=== PATIENT | female | born 1980 | race Hispanic/Latino ===

== ENCOUNTER 2020-06-02 11:38 | Inpatient (IN) | payer MEDICARE ==
[~2020-06-02] VITALS: Ht 157.5 cm; Wt 40.9 kg
[2020-06-02] MEDS ORDERED: 0.9% NACL 500ML IV.SOLN 500 ML IV ONE ×2 (11:53→12:33)
[2020-06-02 12:34] LABS: BASOPHILS % (AUTO) 1.7 % (0.0-5.0); EOSINOPHILS % (AUTO) 3.8 % (0.0-8.0); HEMATOCRIT 33.6 % (36-48); LYMPHOCYTES % (AUTO) 49.6 % (21.0-51.0); MEAN CORPUSCULAR HEMOGLOBIN 31.3 pg (27.0-33.0); MEAN CORPUSCULAR HGB CONC 32.7 g/dL (32.0-36.0); MEAN CORPUSCULAR VOLUME 95.5 fL (79-99); MONOCYTES % (AUTO) 9.7 % (3.0-13.0); NEUTROPHILS % (AUTO) 34.8 % (40.0-77.0); PLATELET COUNT (AUTO) 224 K/uL (130-400); RED BLOOD CELL COUNT(AUTO) 3.52 MIL/uL (4.00-5.50); RED CELL DISTRIBUTION WIDTH 13.3 % (11.0-15.5); WHITE BLOOD COUNT (AUTO) 2.4 K/uL (4.8-10.8)
[2020-06-02 12:46] LABS: INR 1.01 (0.85-1.15)
[2020-06-02 12:48] LABS: PARTIAL THROMBOPLASTIN TIME 22.3 SEC (26.3-35.5)
[2020-06-02 12:50] LABS: ALBUMIN 2.8 g/dL (3.5-5.0); BILIRUBIN,TOTAL 0.1 mg/dL (0.2-1.0); CREATININE 0.5 mg/dL (0.5-1.5); POTASSIUM 4.2 mmol/L (3.5-5.1); TOTAL PROTEIN, SERUM 6.7 g/dL (6.0-8.3)
[2020-06-02 12:58] LABS: B-TYPE NATRIURETIC PEPTIDE < 5 pg/mL (0-100)
[2020-06-02] MEDS ORDERED: DEXTROSE 50%-WATER 50 ML DISP.SYRIN IV ONE (13:03)
[2020-06-02 13:13] LABS: EOSINOPHILS % (MANUAL) 2 % (1-6); LYMPHOCYTES % (MANUAL) 44 % (22-44); MAN.DIFF COMMENT-IMPRESSION MANUAL DIFFERENTIAL; MONOCYTES % (MANUAL) 5 % (2-9); PLATELET MORPHOLOGY COMMENT ADEQUATE; SEGMENTED NEUTROPHILS % 49 % (40-70)
[2020-06-02] MEDS ORDERED: ONDANSETRON 4MG INJ IV PRN (15:00)
[2020-06-02] MEDS ORDERED: ALBUMIN (HUMAN) 25% 100 ML IV PRN (16:00)
[2020-06-02 18:28] LABS: APPEARANCE,URINE Cloudy (CLEAR); BILIRUBIN,URINE Negative (NEGATIVE); COLOR,URINE Dark Yellow (YELLOW); GLUCOSE, URINE (UA) 500 mg/dL (NEGATIVE); KETONES,URINE Negative (NEGATIVE); LEUKOCYTE ESTERASE ,URINE Trace (NEGATIVE); NITRATE,URINE Negative (NEGATIVE); OCCULT BLOOD,URINE Negative (NEGATIVE); PH,URINE 8.5 (5.0-8.0); PROTEIN,URINE Negative (NEGATIVE)
[2020-06-02 18:38] LABS: BACTERIA,URINE Few /HPF (None Seen); RBC,URINE 0-1 /HPF (0-1)
[2020-06-02 18:39] LABS: MUCUS,URINE Moderate LPF (None Seen); SQUAMOUS EPITHELIAL CELL,UR Few /HPF (0-2)
[2020-06-02 18:40] LABS: AMORPHOUS SEDIMENT,UR Few /LPF (None Seen); TRIPLE PHOSPHATE CRYSTAL,UR Few /LPF (None Seen)
[2020-06-02] MEDS ORDERED: LACT10SO9 PO (19:05)
[2020-06-02] MEDS ORDERED: CLON1TAB12 PEG (19:05)
[2020-06-02] MEDS ORDERED: FLUT15.845 NS (19:05)
[2020-06-02] MEDS ORDERED: MULT-1238 PEG (19:05)
[2020-06-02] MEDS ORDERED: MIRT45TA79 PEG (19:05)
[2020-06-02] MEDS ORDERED: SODI104S3 NS (19:05)
[2020-06-02] MEDS ORDERED: LEVO112C4 PEG (19:05)
[2020-06-02] MEDS ORDERED: CARB200T6 PEG (19:05)
[2020-06-02] MEDS ORDERED: BENZ2TAB10 PEG (19:05)
[2020-06-02] MEDS ORDERED: DOCU50LI18 PO (19:05)
[2020-06-02] MEDS ORDERED: LORA10TA7 PEG (19:05)
[2020-06-02] MEDS ORDERED: FOLI1 PEG (19:05)
[2020-06-02] MEDS ORDERED: OLAN10TA73 PEG (19:05)
[2020-06-02] MEDS ORDERED: PANT40TA54 PEG (19:05)
[2020-06-02] MEDS: MIDODRINE HCL 5 MG TABLET PO SCH (21:00)
[2020-06-02] MEDS: FAMOTIDINE 20MG VIAL IV SCH (21:00)
[2020-06-02] MEDS ORDERED: ALBUMIN (HUMAN) 25% 50 ML IV ONE (21:11)
[2020-06-03] MEDS ORDERED: ALBUMIN (HUMAN) 25% 50 ML IV ONE (01:59)
[2020-06-03 05:05] VITALS: BP 84/55
[2020-06-03] MEDS ORDERED: DEXTROSE 50%-WATER 50 ML DISP.SYRIN IV ONE (06:05)
[2020-06-03 06:07] LABS: HEMATOCRIT 30.9 % (36-48); MEAN CORPUSCULAR HEMOGLOBIN 30.5 pg (27.0-33.0); MEAN CORPUSCULAR HGB CONC 31.7 g/dL (32.0-36.0); MEAN CORPUSCULAR VOLUME 96.3 fL (79-99); RED BLOOD CELL COUNT(AUTO) 3.21 MIL/uL (4.00-5.50); RED CELL DISTRIBUTION WIDTH 13.2 % (11.0-15.5); WHITE BLOOD COUNT (AUTO) 3.5 K/uL (4.8-10.8)
[2020-06-03 06:10] LABS: HEMOGLOBIN A1C 5.6 % (4.0-6.0)
[2020-06-03] MEDS ORDERED: GLUCAGON 1MG KIT 1 MG ML IM PRN (06:15)
[2020-06-03] MEDS ORDERED: DEXTROSE 50%-WATER 50 ML DISP.SYRIN IV PRN (06:15)
[2020-06-03 06:35] LABS: ALBUMIN 3.1 g/dL (3.5-5.0); BILIRUBIN,TOTAL 0.2 mg/dL (0.2-1.0); CREATININE 0.4 mg/dL (0.5-1.5); POTASSIUM 3.9 mmol/L (3.5-5.1); THYROID STIMULATING HORMONE 0.21 uIU/mL (0.36-3.74); TOTAL PROTEIN, SERUM 6.3 g/dL (6.0-8.3)
[2020-06-03 08:00] VITALS: BP 90/61
[2020-06-03] MEDS: MIDODRINE HCL 5 MG TABLET PO SCH ×2 (09:00→20:23)
[2020-06-03] MEDS: FAMOTIDINE 20MG VIAL IV SCH ×2 (09:00→20:23)
[2020-06-03 11:43] VITALS: BP 88/57
[2020-06-03] MEDS ORDERED: 0.9% NACL 500ML IV.SOLN 500 ML IV SCH (14:30)
[2020-06-03 16:00] VITALS: BP 90/60
[2020-06-03 20:00] VITALS: BP 96/69
[2020-06-04] VITALS: BP 93/57
[2020-06-04 04:00] VITALS: BP 90/58
[2020-06-04 05:00] LABS: BASOPHILS % (AUTO) 0.5 % (0.0-5.0); EOSINOPHILS % (AUTO) 1.2 % (0.0-8.0); HEMATOCRIT 35.9 % (36-48); LYMPHOCYTES % (AUTO) 24.1 % (21.0-51.0); MEAN CORPUSCULAR HEMOGLOBIN 30.9 pg (27.0-33.0); MEAN CORPUSCULAR VOLUME 96.5 fL (79-99); MONOCYTES % (AUTO) 3.2 % (3.0-13.0); NEUTROPHILS % (AUTO) 70.6 % (40.0-77.0); PLATELET COUNT (AUTO) 281 K/uL (130-400); RED BLOOD CELL COUNT(AUTO) 3.72 MIL/uL (4.00-5.50); RED CELL DISTRIBUTION WIDTH 13.3 % (11.0-15.5); WHITE BLOOD COUNT (AUTO) 7.7 K/uL (4.8-10.8)
[2020-06-04 05:14] LABS: CREATININE 0.5 mg/dL (0.5-1.5)
[2020-06-04 07:30] VITALS: BP 88/58
[2020-06-04] MEDS: FAMOTIDINE 20MG VIAL IV SCH (09:20)
[2020-06-04] MEDS: MIDODRINE HCL 5 MG TABLET PO SCH (09:20)
[2020-06-04 11:00] VITALS: BP 86/57
[2020-06-04 16:00] VITALS: BP 99/73
[2020-06-04] MEDS ORDERED: NACL NASAL SPRAY 120 SPRAY/BOTTLE NS PRN (16:00)
[2020-06-04] MEDS ORDERED: MIDO5TAB4 PO (16:28)
[2020-06-04 19:59] VITALS: BP 121/75
[2020-06-04] MEDS ORDERED: FLUTICASONE PROPIONATE 50MCG/SPRAY 16 GM BOTTLE NS SCH (21:00)
[2020-06-04] MEDS ORDERED: LACTULOSE 20 GM/30 ML UDCUP PO SCH (21:00)
[2020-06-04] MEDS ORDERED: CARBAMAZEPINE 200 MG TABLET PO SCH (21:00)
[2020-06-04] MEDS ORDERED: OLANZAPINE 5 MG TAB PO SCH (21:00)
[2020-06-04] MEDS ORDERED: MIDODRINE HCL 5 MG TABLET PO SCH (21:00)
[2020-06-04] MEDS ORDERED: MIRTAZAPINE 15 MG TABLET PO SCH (21:00)
[2020-06-04] MEDS ORDERED: CLONAZEPAM 1MG TAB PO SCH (21:00)
[2020-06-05] MEDS ORDERED: LEVOTHYROXINE 112 MCG TABLET PO SCH (07:30)
[2020-06-05] MEDS ORDERED: MULTIVITAMIN WITH MINERALS TABLET PO SCH (09:00)
[2020-06-05] MEDS ORDERED: FOLIC ACID 1 MG TABLET PO SCH (09:00)
[2020-06-05] MEDS ORDERED: BENZTROPINE 0.5MG TAB PO SCH (09:00)
[2020-06-05] MEDS ORDERED: DOCUSATE SODIUM 100 MG CAP PO SCH (09:00)
[2020-06-05] MEDS ORDERED: PANTOPRAZOLE 40 MG TAB DR PO SCH (09:00)
[2020-06-05] MEDS ORDERED: LORATADINE 10 MG TABLET PO SCH (09:00)
== END 2020-06-04 21:00 | disposition home or self-care (01) | DRG 315 ==
LOC: EDH 11:38 → EDHIP 14:54 → 3DH 06-03 04:32
PROVIDERS: ADMIT Family Medicine; ATTEND Family Medicine
DX: I95.9 Hypotension, unspecified (principal); E44.1 Mild protein-calorie malnutrition; E16.2 Hypoglycemia, unspecified; R53.81 Other malaise; R13.10 Dysphagia, unspecified; Z93.1 Gastrostomy status; E03.9 Hypothyroidism, unspecified; G80.9 Cerebral palsy, unspecified; Z20.822 Contact with and (suspected) exposure to COVID-19
CPT/HCPCS: 36415; 71045; 80048; 80053; 81001; 82270; 82550; 82947; 82948; 83036; 83605; 83690; 83880; 84145; 84443; 84484; 84702; 85025; 85027; 85610; 85730; 86900; 86901; 87040; 87426; 87804; 87880; 93005; 99291; G0378; J1610; J3490; J7040; J7070; P9047; U0003

== ENCOUNTER 2020-06-11 21:15 | Inpatient (IN) | payer MEDICARE ==
[~2020-06-11] VITALS: Ht 157.5 cm; Wt 40.8 kg
[~2020-06-11 21:15] MED LIST: BENZ2TAB10 PEG; CARB200T6 PEG; CLON1TAB12 PEG; DOCU50LI18 PO; FLUT15.845 NS; FOLI1 PEG; LACT10SO9 PO; LEVO112C4 PEG; LORA10TA7 PEG; MIDO5TAB4 PO; MIRT45TA79 PEG; MULT-1238 PEG; OLAN10TA73 PEG; PANT40TA54 PEG; SODI104S3 NS
[2020-06-11 21:44] LABS: BASOPHILS % (AUTO) 1.1 % (0.0-5.0); EOSINOPHILS % (AUTO) 2.2 % (0.0-8.0); HEMATOCRIT 33.9 % (36-48); MEAN CORPUSCULAR HEMOGLOBIN 31.4 pg (27.0-33.0); MEAN CORPUSCULAR HGB CONC 32.7 g/dL (32.0-36.0); MONOCYTES % (AUTO) 13.6 % (3.0-13.0); NEUTROPHILS % (AUTO) 51.8 % (40.0-77.0); PLATELET COUNT (AUTO) 262 K/uL (130-400); RED BLOOD CELL COUNT(AUTO) 3.53 MIL/uL (4.00-5.50); RED CELL DISTRIBUTION WIDTH 13.6 % (11.0-15.5); WHITE BLOOD COUNT (AUTO) 3.7 K/uL (4.8-10.8)
[2020-06-11 21:52] LABS: APPEARANCE,URINE Turbid (CLEAR); BILIRUBIN,URINE Negative (NEGATIVE); COLOR,URINE Dark Yellow (YELLOW); GLUCOSE, URINE (UA) 500 mg/dL (NEGATIVE); KETONES,URINE Trace mg/dL (NEGATIVE); LEUKOCYTE ESTERASE ,URINE Large (NEGATIVE); NITRATE,URINE Negative (NEGATIVE); OCCULT BLOOD,URINE Nonhemolyzed Trace (NEGATIVE); PH,URINE 6.5 (5.0-8.0); PROTEIN,URINE POS 1+ mg/dL (NEGATIVE)
[2020-06-11 21:59] LABS: HCG,QUAL RESULT NEGATIVE (NEGATIVE)
[2020-06-11 22:00] LABS: CREATININE 0.4 mg/dL (0.5-1.5); POTASSIUM 3.6 mmol/L (3.5-5.1)
[2020-06-11 22:02] LABS: BACTERIA,URINE Moderate /HPF (None Seen); RBC,URINE 0-1 /HPF (0-1); SQUAMOUS EPITHELIAL CELL,UR None Seen /HPF (0-2); WBC,URINE Full Field /HPF (0-1)
[2020-06-11] MEDS ORDERED: 0.9%NACL 1000ML 1,000 ML IV ONE (22:06)
[2020-06-11 22:07] LABS: AMPHET/METH SCREEN,URINE NEGATIVE (NEGATIVE); BARBITURATE SCREEN, URINE NEGATIVE (NEGATIVE); BENZODIAZEPINES SCREEN,URINE NEGATIVE (NEGATIVE); CANNABINOID SCREEN,URINE NEGATIVE (NEGATIVE); COCAINE SCREEN,URINE NEGATIVE (NEGATIVE); OPIATE SCREEN,URINE NEGATIVE (NEGATIVE); PHENCYCLIDINE SCREEN,URINE NEGATIVE (NEGATIVE)
[2020-06-11 22:10] LABS: ALBUMIN 3.1 g/dL (3.5-5.0); BILIRUBIN,TOTAL 0.1 mg/dL (0.2-1.0); TOTAL PROTEIN, SERUM 7.1 g/dL (6.0-8.3)
[2020-06-12] MEDS ORDERED: ZOSYN 3.375GM+NS 50ML 50 ML IV ONE ×2 (00:05→05:54)
[2020-06-12] MEDS ORDERED: ACETAMINOPHEN 325 MG TAB PEG PRN ×2 (00:45)
[2020-06-12] MEDS: 0.9%NACL 1000ML 1,000 ML IV SCH ×2 (00:45→10:45)
[2020-06-12] MEDS ORDERED: ONDANSETRON 4MG INJ IV PRN (00:45)
[2020-06-12] MEDS ORDERED: 0.9%NACL 1000ML 1,000 ML IV SCH (00:45)
[2020-06-12 01:22] LABS: RETICULOCYTE % (AUTO) 1.51 % (0.42-2.23)
[2020-06-12 01:47] LABS: MAGNESIUM 2.4 mg/dL (1.80-2.40); PHOSPHORUS 3.8 mg/dL (2.5-4.9); THYROID STIMULATING HORMONE 0.17 uIU/mL (0.36-3.74)
[2020-06-12 02:41] LABS: % IRON SATURATION 34.2 % (22-44)
[2020-06-12 06:28] LABS: BASOPHILS % (AUTO) 1.3 % (0.0-5.0); EOSINOPHILS % (AUTO) 3.5 % (0.0-8.0); HEMATOCRIT 30.5 % (36-48); LYMPHOCYTES % (AUTO) 44.7 % (21.0-51.0); MEAN CORPUSCULAR HEMOGLOBIN 30.7 pg (27.0-33.0); MEAN CORPUSCULAR HGB CONC 31.5 g/dL (32.0-36.0); MEAN CORPUSCULAR VOLUME 97.4 fL (79-99); MONOCYTES % (AUTO) 10.7 % (3.0-13.0); NEUTROPHILS % (AUTO) 39.8 % (40.0-77.0); PLATELET COUNT (AUTO) 239 K/uL (130-400); RED BLOOD CELL COUNT(AUTO) 3.13 MIL/uL (4.00-5.50); RED CELL DISTRIBUTION WIDTH 13.7 % (11.0-15.5); WHITE BLOOD COUNT (AUTO) 3.2 K/uL (4.8-10.8)
[2020-06-12 06:46] LABS: ALBUMIN 2.4 g/dL (3.5-5.0); BILIRUBIN,TOTAL 0.1 mg/dL (0.2-1.0); CREATININE 0.4 mg/dL (0.5-1.5); POTASSIUM 3.7 mmol/L (3.5-5.1); TOTAL PROTEIN, SERUM 5.5 g/dL (6.0-8.3)
[2020-06-12] MEDS: ZOSYN 3.375GM+NS 50ML 50 ML IV SCH ×2 (08:00→15:26)
[2020-06-12] MEDS: ENOXAPARIN SODIUM 30 MG/0.3 ML SQ SCH (11:41)
[2020-06-12] MEDS: FAMOTIDINE 20MG VIAL IV SCH ×2 (11:41→20:39)
[2020-06-12 12:19] VITALS: BP 92/62
[2020-06-12] MEDS ORDERED: HALOPERIDOL INJ 5 MG/ML VIAL IM ONE (15:00)
[2020-06-12 17:33] VITALS: BP 105/64
[2020-06-12] MEDS ORDERED: DOCU50LI18 PEG (18:19)
[2020-06-12 19:00] VITALS: BP 107/68
[2020-06-12 23:12] VITALS: BP 113/67
[2020-06-13] MEDS: ZOSYN 3.375GM+NS 50ML 50 ML IV SCH ×3 (00:07→15:47)
[2020-06-13] MEDS: 0.9%NACL 1000ML 1,000 ML IV SCH ×3 (00:08→16:45)
[2020-06-13 03:17] VITALS: BP 100/71
[2020-06-13 07:09] LABS: BASOPHILS % (AUTO) 1.8 % (0.0-5.0); EOSINOPHILS % (AUTO) 3.9 % (0.0-8.0); HEMATOCRIT 32.3 % (36-48); LYMPHOCYTES % (AUTO) 44.9 % (21.0-51.0); MEAN CORPUSCULAR HEMOGLOBIN 31.1 pg (27.0-33.0); MEAN CORPUSCULAR HGB CONC 32.5 g/dL (32.0-36.0); MEAN CORPUSCULAR VOLUME 95.6 fL (79-99); MONOCYTES % (AUTO) 10.9 % (3.0-13.0); NEUTROPHILS % (AUTO) 38.1 % (40.0-77.0); PLATELET COUNT (AUTO) 230 K/uL (130-400); RED BLOOD CELL COUNT(AUTO) 3.38 MIL/uL (4.00-5.50); RED CELL DISTRIBUTION WIDTH 13.3 % (11.0-15.5); WHITE BLOOD COUNT (AUTO) 2.9 K/uL (4.8-10.8)
[2020-06-13 07:17] LABS: CREATININE 0.3 mg/dL (0.5-1.5); POTASSIUM 4.2 mmol/L (3.5-5.1)
[2020-06-13 07:35] LABS: BASOPHILS % (MANUAL) 3 % (0-2); LYMPHOCYTES % (MANUAL) 45 % (22-44); MAN.DIFF COMMENT-IMPRESSION MANUAL DIFFERENTIAL; MONOCYTES % (MANUAL) 11 % (2-9); SEGMENTED NEUTROPHILS % 41 % (40-70)
[2020-06-13 07:37] LABS: PLATELET MORPHOLOGY COMMENT ADEQUATE
[2020-06-13 08:00] VITALS: BP 103/70
[2020-06-13] MEDS: FAMOTIDINE 20MG VIAL IV SCH ×2 (09:25→20:09)
[2020-06-13] MEDS: DOCUSATE NA 100MG/10ML UDCUP PEG SCH (09:25)
[2020-06-13] MEDS: BENZTROPINE 0.5MG TAB PO SCH (09:26)
[2020-06-13] MEDS: MIDODRINE HCL 5 MG TABLET PO SCH ×2 (09:26→20:09)
[2020-06-13] MEDS: CLONAZEPAM 1MG TAB PEG SCH ×2 (09:26→20:09)
[2020-06-13] MEDS: CARBAMAZEPINE 200 MG TABLET PO SCH ×3 (09:26→20:09)
[2020-06-13] MEDS: FOLIC ACID 1 MG TABLET PEG SCH (09:26)
[2020-06-13] MEDS: ENOXAPARIN SODIUM 30 MG/0.3 ML SQ SCH (09:27)
[2020-06-13] MEDS: LEVOTHYROXINE 112 MCG TABLET PO SCH (09:29)
[2020-06-13] MEDS: LORATADINE 10 MG TABLET PEG SCH (09:29)
[2020-06-13 12:00] VITALS: BP 106/69
[2020-06-13 19:10] VITALS: BP 150/68
[2020-06-13 19:24] VITALS: BP 98/70
[2020-06-13] MEDS: MIRTAZAPINE 15 MG TABLET PO SCH (20:09)
[2020-06-13] MEDS: OLANZAPINE ODT 5 MG TAB PO SCH (20:09)
[2020-06-13] MEDS: FLUTICASONE PROPIONATE 50MCG/SPRAY 16 GM BOTTLE EN SCH (20:13)
[2020-06-13 23:24] VITALS: BP 84/58
[2020-06-14] MEDS: ZOSYN 3.375GM+NS 50ML 50 ML IV SCH ×4 (00:16→23:40)
[2020-06-14] MEDS: 0.9%NACL 1000ML 1,000 ML IV SCH ×3 (02:45→21:38)
[2020-06-14 04:22] VITALS: BP 80/53
[2020-06-14 05:34] LABS: BASOPHILS % (AUTO) 1.8 % (0.0-5.0); EOSINOPHILS % (AUTO) 3.9 % (0.0-8.0); HEMATOCRIT 31.3 % (36-48); LYMPHOCYTES % (AUTO) 67.1 % (21.0-51.0); MEAN CORPUSCULAR HEMOGLOBIN 30.5 pg (27.0-33.0); MEAN CORPUSCULAR HGB CONC 32.3 g/dL (32.0-36.0); MEAN CORPUSCULAR VOLUME 94.6 fL (79-99); NEUTROPHILS % (AUTO) 16.2 % (40.0-77.0); PLATELET COUNT (AUTO) 242 K/uL (130-400); RED BLOOD CELL COUNT(AUTO) 3.31 MIL/uL (4.00-5.50); RED CELL DISTRIBUTION WIDTH 13.2 % (11.0-15.5); WHITE BLOOD COUNT (AUTO) 2.3 K/uL (4.8-10.8)
[2020-06-14 05:42] LABS: CREATININE 0.4 mg/dL (0.5-1.5); POTASSIUM 3.7 mmol/L (3.5-5.1)
[2020-06-14] MEDS: LEVOTHYROXINE 112 MCG TABLET PO SCH (06:18)
[2020-06-14 07:48] VITALS: BP 87/58
[2020-06-14] MEDS: FLUTICASONE PROPIONATE 50MCG/SPRAY 16 GM BOTTLE EN SCH (09:33)
[2020-06-14] MEDS: BENZTROPINE 0.5MG TAB PO SCH (09:35)
[2020-06-14] MEDS: ENOXAPARIN SODIUM 30 MG/0.3 ML SQ SCH (09:36)
[2020-06-14] MEDS: DOCUSATE NA 100MG/10ML UDCUP PEG SCH (09:37)
[2020-06-14] MEDS: CLONAZEPAM 1MG TAB PEG SCH ×2 (09:37→20:37)
[2020-06-14] MEDS: CARBAMAZEPINE 200 MG TABLET PO SCH ×3 (09:37→20:39)
[2020-06-14] MEDS: FAMOTIDINE 20MG VIAL IV SCH ×2 (09:37→20:37)
[2020-06-14] MEDS: FOLIC ACID 1 MG TABLET PEG SCH (09:37)
[2020-06-14] MEDS: LORATADINE 10 MG TABLET PEG SCH (09:37)
[2020-06-14] MEDS: MIDODRINE HCL 5 MG TABLET PO SCH ×2 (09:37→20:37)
[2020-06-14 11:27] VITALS: BP 96/70
[2020-06-14 17:02] VITALS: BP 111/78
[2020-06-14 20:00] VITALS: BP 92/61
[2020-06-14] MEDS: OLANZAPINE ODT 5 MG TAB PO SCH (20:37)
[2020-06-14] MEDS: MIRTAZAPINE 15 MG TABLET PO SCH (20:38)
[2020-06-15] VITALS: BP 86/50
[2020-06-15 04:00] VITALS: BP 100/65
[2020-06-15 04:55] LABS: BASOPHILS % (AUTO) 1.4 % (0.0-5.0); EOSINOPHILS % (AUTO) 3.1 % (0.0-8.0); HEMATOCRIT 32.2 % (36-48); LYMPHOCYTES % (AUTO) 59.2 % (21.0-51.0); MEAN CORPUSCULAR HEMOGLOBIN 30.3 pg (27.0-33.0); MEAN CORPUSCULAR HGB CONC 32.3 g/dL (32.0-36.0); MEAN CORPUSCULAR VOLUME 93.9 fL (79-99); MONOCYTES % (AUTO) 10.2 % (3.0-13.0); NEUTROPHILS % (AUTO) 26.1 % (40.0-77.0); PLATELET COUNT (AUTO) 251 K/uL (130-400); RED BLOOD CELL COUNT(AUTO) 3.43 MIL/uL (4.00-5.50); RED CELL DISTRIBUTION WIDTH 13.2 % (11.0-15.5); WHITE BLOOD COUNT (AUTO) 2.9 K/uL (4.8-10.8)
[2020-06-15 05:05] LABS: CREATININE 0.4 mg/dL (0.5-1.5); POTASSIUM 3.7 mmol/L (3.5-5.1)
[2020-06-15] MEDS: LEVOTHYROXINE 112 MCG TABLET PO SCH (06:05)
[2020-06-15 08:04] VITALS: BP 103/67
[2020-06-15] MEDS: ZOSYN 3.375GM+NS 50ML 50 ML IV SCH ×2 (09:31→16:20)
[2020-06-15] MEDS: FAMOTIDINE 20MG VIAL IV SCH ×2 (09:36→20:05)
[2020-06-15] MEDS: LORATADINE 10 MG TABLET PEG SCH (09:37)
[2020-06-15] MEDS: MIDODRINE HCL 5 MG TABLET PO SCH ×2 (09:37→20:05)
[2020-06-15] MEDS: BENZTROPINE 0.5MG TAB PO SCH (09:37)
[2020-06-15] MEDS: ENOXAPARIN SODIUM 30 MG/0.3 ML SQ SCH (09:37)
[2020-06-15] MEDS: DOCUSATE NA 100MG/10ML UDCUP PEG SCH (09:38)
[2020-06-15] MEDS: CARBAMAZEPINE 200 MG TABLET PO SCH ×2 (09:39→16:20)
[2020-06-15] MEDS: FLUTICASONE PROPIONATE 50MCG/SPRAY 16 GM BOTTLE EN SCH (09:39)
[2020-06-15] MEDS: FOLIC ACID 1 MG TABLET PEG SCH (09:39)
[2020-06-15] MEDS: CLONAZEPAM 1MG TAB PEG SCH ×2 (09:39→20:05)
[2020-06-15] MEDS: 0.9%NACL 1000ML 1,000 ML IV SCH (09:40)
[2020-06-15 12:09] VITALS: BP 91/54
[2020-06-15 15:33] VITALS: BP 92/60
[2020-06-15] MEDS ORDERED: CEPH500B PO (17:49)
[2020-06-15] MEDS: OLANZAPINE ODT 5 MG TAB PO SCH (20:06)
[2020-06-15] MEDS: MIRTAZAPINE 15 MG TABLET PO SCH (20:06)
== END 2020-06-15 20:55 | disposition home or self-care (01) | DRG 871 ==
LOC: EDH 21:15 → EDHIP 06-12 00:41 → 3AH 06-12 09:22 → 3BH 06-12 19:55
PROVIDERS: ADMIT Internal Medicine; ATTEND Internal Medicine
DX: A41.50 Gram-negative sepsis, unspecified (principal); G93.41 Metabolic encephalopathy; N39.0 Urinary tract infection, site not specified; E87.1 Hypo-osmolality and hyponatremia; R47.01 Aphasia; D64.9 Anemia, unspecified; Z20.822 Contact with and (suspected) exposure to COVID-19; B96.20 Unspecified Escherichia coli [E. coli] as the cause of diseases classified elsewhere; E03.9 Hypothyroidism, unspecified; F20.9 Schizophrenia, unspecified; F79 Unspecified intellectual disabilities; G80.9 Cerebral palsy, unspecified; R13.12 Dysphagia, oropharyngeal phase; R59.1 Generalized enlarged lymph nodes; R53.81 Other malaise; Z74.01 Bed confinement status; Z79.899 Other long term (current) drug therapy; Z93.1 Gastrostomy status
CPT/HCPCS: 36415; 71045; 76770; 80048; 80053; 80305; 81001; 81025; 82948; 83540; 83550; 83605; 83690; 83735; 84100; 84145; 84443; 84484; 85025; 85045; 87040; 87077; 87088; 87186; 87426; 93005; G0378; J1630; J1650; J2543; J3490; J7030; U0003

== ENCOUNTER 2020-06-16 22:15 | Observation (INO) | payer MEDICARE ==
[~2020-06-16 22:15] MED LIST changes: +CEPH500B PO; +DOCU50LI18 PEG; -DOCU50LI18 PO; +OLAN10TA20 PEG; -OLAN10TA73 PEG
[2020-06-16] MEDS ORDERED: SODIUM CHLORIDE 0.9% 1000ML 1,000 ML IV ONE (22:35)
[2020-06-16] MEDS ORDERED: CEFTRIAXONE SODIUM 2 GM VIAL ONE (22:38)
[2020-06-16] MEDS ORDERED: SODIUM CHLORIDE 0.9% 100 ML IV ONE (22:39)
[2020-06-16 23:00] LABS: APPEARANCE,URINE Clear (CLEAR); BILIRUBIN,URINE Negative (NEGATIVE); COLOR,URINE Dark Yellow (YELLOW); GLUCOSE, URINE (UA) TRACE mg/dL (NEGATIVE); KETONES,URINE Trace mg/dL (NEGATIVE); LEUKOCYTE ESTERASE ,URINE Small (NEGATIVE); NITRATE,URINE Negative (NEGATIVE); OCCULT BLOOD,URINE Negative (NEGATIVE); PH,URINE 7.5 (5.0-8.0); PROTEIN,URINE Negative (NEGATIVE)
[2020-06-16 23:11] LABS: BACTERIA,URINE None Seen /HPF (None Seen); RBC,URINE None Seen /HPF (0-1); SQUAMOUS EPITHELIAL CELL,UR Few /HPF (0-2); WBC,URINE 0-1 /HPF (0-1); YEAST,URINE BUDDING None Seen /HPF (None Seen)
[2020-06-16 23:31] LABS: BASOPHILS % (AUTO) 1.1 % (0.0-5.0); EOSINOPHILS % (AUTO) 2.1 % (0.0-8.0); HEMATOCRIT 30.8 % (36-48); LYMPHOCYTES % (AUTO) 42.5 % (21.0-51.0); MEAN CORPUSCULAR HEMOGLOBIN 30.9 pg (27.0-33.0); MEAN CORPUSCULAR HGB CONC 32.1 g/dL (32.0-36.0); MEAN CORPUSCULAR VOLUME 96.3 fL (79-99); MONOCYTES % (AUTO) 8.9 % (3.0-13.0); PLATELET COUNT (AUTO) 238 K/uL (130-400); RED CELL DISTRIBUTION WIDTH 13.5 % (11.0-15.5); WHITE BLOOD COUNT (AUTO) 2.8 K/uL (4.8-10.8)
[2020-06-16 23:48] LABS: INR 1.05 (0.85-1.15); PROTHROMBIN TIME 11.4 SEC (9.6-11.6)
[2020-06-16 23:50] LABS: PARTIAL THROMBOPLASTIN TIME 26.3 SEC (26.3-35.5)
[2020-06-17 00:04] LABS: BAND NEUTROPHILS % (MANUAL) 3 % (0-2); BASOPHILS % (MANUAL) 1 % (0-2); EOSINOPHILS % (MANUAL) 5 % (1-6); LYMPHOCYTES % (MANUAL) 43 % (22-44); MAN.DIFF COMMENT-IMPRESSION MANUAL DIFFERENTIAL; MONOCYTES % (MANUAL) 10 % (2-9); PLATELET MORPHOLOGY COMMENT ADEQUATE; REACTIVE LYMPHOCYTES 2 % (0-0); SEGMENTED NEUTROPHILS % 36 % (40-70)
[2020-06-17 00:24] LABS: CREATININE 0.4 mg/dL (0.5-1.5); POTASSIUM 3.5 mmol/L (3.5-5.1)
[2020-06-17 00:29] LABS: ALBUMIN 2.5 g/dL (3.5-5.0); BILIRUBIN,TOTAL 0.1 mg/dL (0.2-1.0); TOTAL PROTEIN, SERUM 5.8 g/dL (6.0-8.3)
[2020-06-17] MEDS ORDERED: SODIUM CHLORIDE 0.9% 1000ML 1,000 ML IV ONE (04:11)
[2020-06-17] MEDS ORDERED: CEFTRIAXONE SODIUM 1 GM IV SCH (04:30)
[2020-06-17] MEDS ORDERED: LACTULOSE 20 GM/30 ML UDCUP PO PRN (04:30)
[2020-06-17] MEDS ORDERED: DiphenhydrAMINE HCL 50 MG/ML VIAL IV PRN (04:30)
[2020-06-17] MEDS ORDERED: DIPHENHYDRAMINE HCL 25 MG CAPSULE PO PRN (04:30)
[2020-06-17] MEDS ORDERED: MAG HYDROX/AL HYDROX/SIMETH ES 30 ML SUSP UDCUP PO PRN (04:30)
[2020-06-17] MEDS ORDERED: GUAIFENESIN-DM 200/20 MG 10 ML PO PRN (04:30)
[2020-06-17] MEDS ORDERED: NITROGLYCERIN 0.4 MG SL TAB SL PRN (04:30)
[2020-06-17] MEDS ORDERED: ONDANSETRON HCL 4 MG/2 ML VIAL IV PRN (04:30)
[2020-06-17] MEDS ORDERED: ACETAMINOPHEN 325 MG TAB PO PRN ×2 (04:30)
[2020-06-17] MEDS ORDERED: LACTATED RINGERS 1000ML 1,000 ML IV SCH (04:30)
[2020-06-17] MEDS ORDERED: MIDODRINE HCL 5 MG TABLET PO SCH ×2 (05:00→21:00)
[2020-06-17] MEDS ORDERED: MIDODRINE HCL 5 MG TABLET ONE (07:38)
[2020-06-17] MEDS ORDERED: SODIUM CHLORIDE 45 ML SPRY NS PRN (14:30)
[2020-06-17] MEDS ORDERED: CEPHALEXIN 500 MG CAPSULE PO SCH (14:30)
[2020-06-17] MEDS ORDERED: LACTULOSE 20 GM/30 ML UDCUP PO SCH (21:00)
[2020-06-18] MEDS ORDERED: LEVOTHYROXINE 112 MCG TABLET PEG SCH (07:30)
[2020-06-18] MEDS ORDERED: MULTIVITAMIN WITH MINERALS TABLET PO SCH (09:00)
[2020-06-18] MEDS ORDERED: LORATADINE 10 MG TABLET PEG SCH (09:00)
[2020-06-18] MEDS ORDERED: FOLIC ACID 1 MG TABLET PEG SCH (09:00)
[2020-06-18] MEDS ORDERED: FLUTICASONE PROPIONATE 50MCG/SPRAY 16 GM BOTTLE NS SCH (09:00)
[2020-06-18] MEDS ORDERED: PANTOPRAZOLE SODIUM 40 MG TABLET.DR GT SCH (09:00)
[2020-06-18] MEDS ORDERED: DOCUSATE NA 100MG/10ML UDCUP PEG SCH (09:00)
== END 2020-06-17 19:05 | disposition home or self-care (01) ==
LOC: EDH 22:15 → EDHIP 06-17 04:24
PROVIDERS: ADMIT Family Medicine; ATTEND Family Medicine
DX: G93.41 Metabolic encephalopathy (principal); I95.9 Hypotension, unspecified; N39.0 Urinary tract infection, site not specified; D64.9 Anemia, unspecified; D72.819 Decreased white blood cell count, unspecified; G80.9 Cerebral palsy, unspecified; E03.9 Hypothyroidism, unspecified; R47.01 Aphasia; F81.9 Developmental disorder of scholastic skills, unspecified; F90.9 Attention-deficit hyperactivity disorder, unspecified type; E11.9 Type 2 diabetes mellitus without complications; Z93.1 Gastrostomy status; Z79.4 Long term (current) use of insulin; Z79.899 Other long term (current) drug therapy
CPT/HCPCS: 36415; 70450; 71045; 80053; 81001; 84484; 85025; 85610; 85730; 93005; 99285; G0378 ×15; J0696; J7030 ×2

== ENCOUNTER 2021-01-23 15:07 | Emergency (ER) | payer MEDICARE ==
[~2021-01-23] VITALS: Ht 152.4 cm; Wt 54.4 kg
[~2021-01-23 15:07] MED LIST changes: -BENZ2TAB10 PEG; -CARB200T6 PEG; -CLON1TAB12 PEG; -MIRT45TA79 PEG; -OLAN10TA20 PEG
[2021-01-23 17:14] VITALS: BP 122/70
== END 2021-01-23 18:44 | disposition home or self-care (01) ==
LOC: EDH 15:07
DX: K94.23 Gastrostomy malfunction (principal); E03.9 Hypothyroidism, unspecified; F90.9 Attention-deficit hyperactivity disorder, unspecified type; Z79.899 Other long term (current) drug therapy
CPT/HCPCS: 43762

== ENCOUNTER 2021-10-23 07:10 | Emergency (ER) | payer MEDICARE ==
[~2021-10-23] VITALS: Ht 154.9 cm; Wt 59.0 kg
[2021-10-23] MEDS ORDERED: DIATR MEGLU/DIATRIZOATE SODIUM 30 ML BOTTLE ONE (08:11)
[2021-10-23 09:21] VITALS: BP 109/81
== END 2021-10-23 11:11 | disposition home or self-care (01) ==
LOC: EDH 07:10
DX: K94.23 Gastrostomy malfunction (principal); E03.9 Hypothyroidism, unspecified; Z87.19 Personal history of other diseases of the digestive system; F90.9 Attention-deficit hyperactivity disorder, unspecified type
CPT/HCPCS: 99284; 43762; 84703; 36415; 74018; Q9963

== ENCOUNTER 2021-11-06 07:24 | Emergency (ER) | payer MEDICARE ==
[~2021-11-06] VITALS: Ht 152.4 cm; Wt 53.1 kg
[2021-11-06] MEDS ORDERED: DIATR MEGLU/DIATRIZOATE SODIUM 30 ML BOTTLE ONE (09:23)
[2021-11-06 11:07] VITALS: BP 109/80
== END 2021-11-06 14:24 | disposition home or self-care (01) ==
LOC: EDH 07:24
DX: K94.23 Gastrostomy malfunction (principal); K59.09 Other constipation; G31.84 Mild cognitive impairment of uncertain or unknown etiology; K21.9 Gastro-esophageal reflux disease without esophagitis; Z79.899 Other long term (current) drug therapy; Z98.890 Other specified postprocedural states
CPT/HCPCS: 99284; 43762; 74018; Q9963

== ENCOUNTER 2022-09-01 07:48 | Emergency (ER) | payer MEDICARE ==
[~2022-09-01] VITALS: Ht 152.4 cm; Wt 45.4 kg
[2022-09-01 07:58] VITALS: BP 103/72
== END 2022-09-01 09:49 | disposition home or self-care (01) ==
LOC: EDH 07:48
DX: K94.23 Gastrostomy malfunction (principal); I95.9 Hypotension, unspecified; K21.9 Gastro-esophageal reflux disease without esophagitis; Z79.899 Other long term (current) drug therapy; Z98.890 Other specified postprocedural states
CPT/HCPCS: 74018

== ENCOUNTER 2024-01-20 20:51 | Emergency (ER) | payer MEDICARE ==
[~2024-01-20] VITALS: Ht 149.9 cm; Wt 52.2 kg
[2024-01-20 22:07] LABS: COVID19 (SARS ANTIGEN RAPID) PRESUMPTIVE NEGATIVE (NEGATIVE)
[2024-01-20 22:08] LABS: INFLUENZA TYPE A Negative For Type A (NEGATIVE); INFLUENZA TYPE B Negative For Type B (NEGATIVE)
[2024-01-20 22:14] VITALS: BP 107/74; PULSE 68; RESP 18; TEMP 98.4; O2SAT 98
[2024-01-20] MEDS ORDERED: AZIT500T2 PO (22:27)
== END 2024-01-21 00:41 | disposition home or self-care (01) ==
LOC: EDH 20:51
DX: J18.9 Pneumonia, unspecified organism (principal); K21.9 Gastro-esophageal reflux disease without esophagitis; E03.9 Hypothyroidism, unspecified; G80.8 Other cerebral palsy; Z20.822 Contact with and (suspected) exposure to COVID-19; Z79.899 Other long term (current) drug therapy; Z98.890 Other specified postprocedural states
CPT/HCPCS: 71045; 87426; 87804

== ENCOUNTER 2024-01-25 23:44 | Emergency (ER) | payer MEDICARE ==
[~2024-01-25] VITALS: Ht 147.3 cm; Wt 40.8 kg
[~2024-01-25 23:44] MED LIST changes: +AZIT500T2 PO
[2024-01-26 01:26] VITALS: BP 130/80; PULSE 88; RESP 16; TEMP 97.2; O2SAT 99
== END 2024-01-26 01:28 | disposition home or self-care (01) ==
LOC: EDH 23:44
DX: K94.23 Gastrostomy malfunction (principal); E03.9 Hypothyroidism, unspecified; F09 Unspecified mental disorder due to known physiological condition; K21.9 Gastro-esophageal reflux disease without esophagitis; F90.9 Attention-deficit hyperactivity disorder, unspecified type
CPT/HCPCS: 74018

== ENCOUNTER 2024-08-09 22:11 | Emergency (ER) | payer MEDICARE ==
[~2024-08-09] VITALS: Ht 152.4 cm; Wt 49.9 kg
[~2024-08-09 22:11] MED LIST changes: +AMPI500C12 PO; -AZIT500T2 PO; +CARB-338 PO; -CEPH500B PO; +CLON0.5T23 PO; -DOCU50LI18 PEG; +ERGO500093 PO; -FOLI1 PEG; +LACT-441 PO; -LACT10SO9 PO; -LEVO112C4 PEG; +LEVO112C5 PO; -LORA10TA7 PEG; +LORA10TA7 PO; +MELA5TAB21 PO; -MULT-1238 PEG; +MULT-30 PO; -PANT40TA54 PEG; +PANT40TA54 PO; -SODI104S3 NS; +SODI30SP3 NS; +folic acid PEG
--- NOTE | 2024-08-09 22:23 | ERN ---
ED Note History of Present Illness Stated Complaint: PRODUCTIVE COUGH, LOW O2 SATURATIONS Chief Complaint: Cough Time Seen by MD: 22:14 Dictation: 43-year-old female with past medical history of intellectual developmental delay, cerebral palsy, psychosis, hypothyroidism, attention deficit hyperactivity disorder, dysphagia with PEG tube placement, hypotension, osteopenia, constipation and aphasia who was brought from a skilled nursing of [facility] for complaints of productive cough and low O2 saturation EMS indicated that her pulse ox was in the 90s and on their way to the ER she received a aerosol treatment with oxygen saturations improving to 97 to 98% on room air. Patient at baseline is nonverbal places her entire right or left hand with all the fingers into the mouth deep as a pacifier. Temperature 96.8 pulse 80 respirations 16 blood pressure 98/65. Pulse oximetry was 98% on room air She was recently admitted end of June for similar complaints at which time she was treated with antibiotics. Allergies: Coded Allergies: No Known Drug Allergies (Unverified Allergy, Unknown, 06/02/20) Home Meds Active Scripts Clindamycin HCl (Clindamycin HCl) 300 Mg Capsule, 1 CAP PO BID for 7 Days, #14 CAP 0 Refills Prov:JUSTICE LAO MD 08/10/24 Prednisone (Prednisone) 20 Mg Tablet, 1 TAB PO AD for 6 Days, #14 TAB 0 Refills TAKE 1 TAB BY MOUTH THREE TIMES PER DAY X3 DAYS, THEN TAKE 1 TAB BY MOUTH TWICE A DAY X2 DAYS, THEN TAKE 1 TAB BY MOUTH ONCE A DAY X1 DAY. Prov:JUSTICE LAO MD 08/10/24 Ampicillin Trihydrate (Ampicillin Trihydrate) 500 Mg Capsule, 1 CAP PO QID for 7 Days, #28 CAP 0 Refills Prov:LUNA PEACOCK MD 07/02/24 Reported Medications Midodrine HCl (Midodrine HCl) 5 Mg Tablet, 1 TAB PO BID for 30 Days, #60 TAB 0 Refills 06/28/24 Pantoprazole Sodium (Pantoprazole Sodium) 40 Mg Tablet.dr, 1 TAB PO DAILY for 30 Days, #30 TAB 0 Refills 06/28/24 [folic acid] No Conflict Check, 1 MG PEG DAILY 06/28/24 Ergocalciferol (Vitamin D2) (Vitamin D2) 1,250 Mcg (30637 Unit) Capsule, 1 CAP PO QWEEK for 28 Days, #4 CAP 0 Refills 06/28/24 Melatonin (Melatonin) 5 Mg Tab.ir.er, 1 TAB PO HS for sleep for 30 Days, #30 TAB 0 Refills 06/28/24 Multivits-Min/FA/Lycopene/Lut (Certavite Sr-Antioxidant Tab) 0.4 Mg-300 Mcg-250 Mcg Tablet, 1 EACH PO DAILY, TAB 06/28/24 Levothyroxine Sodium (Levothyroxine) 112 Mcg Capsule, 112 MCG PO ACBKFST, CAP 06/28/24 Loratadine (Loratadine) 10 Mg Tablet, 1 TAB PO DAILY for allergy symptoms for 30 Days, #30 TAB 0 Refills 06/28/24 Clonazepam (Clonazepam) 0.5 Mg Tab.rapdis, 1 TAB PO TID for 30 Days, #90 TAB 0 Refills 06/28/24 Lactulose (Lactulose) 10 Gram/15 Ml Solution, 30 ML PO QWESA for constipation, #500 ML 0 Refills 06/28/24 Fluticasone Propionate (Fluticasone Propionate) 50 Mcg/Actuation Ramsay.susp, 2 SPRAY NS HS, #16 GM 0 Refills 06/28/24 Sodium Chloride (Saline Nasal Ramsay) 0.65 % Ramsay, 1 SPRAY NS DAILY for 7 Days, #60 ML 0 Refills 06/28/24 Carbamazepine (Carbamazepine ER 200Mg Tab) 200 Mg Tab.er.12h, 1 TAB PO TID for 30 Days, #60 TAB 0 Refills 06/28/24 Past Medical History Past Medical History: Constipation, GERD, Hypothyroid, Hypotension, Seizure Additional Past Medical Hx: PROFOUND IDD, ADHD, PSYCHOSIS, CEREBRAL PALSY, OSTEOPENIA Surgical History: Unknown Surgical History Other: PEG Family History: Negative Social History: Negative, Lives in Assisted Living History: Not Applicable RN Note Reviewed/Agreed w/PFSH: Yes Review of System Dictation Unable to obtain from the patient as she is nonverbal and developmentally delayed Initial Vital Sign VS Vital Signs Date Time Temp Pulse Resp B/P (MAP) Pulse Ox O2 Delivery O2 Flow Rate FiO2 08/09/24 22:21 96.8 80 16 98/65 96 Room Air 0 08/10/24 00:08 21 Physical Exam Dictation General: awake, alert, NAD nonverbal does not follow commands, placing the entire hand either right or left into the mouth all the way to her throat as a pacifier Head/Face: Normocephalic, atraumatic Eyes: PERRL, EOMI, vision at baseline ENT: oral cavity clear, TMs clear, no signs of infection Neck: Trachea midline, supple, no nuchal rigidity Cardiovascular: RRR, normal S1/S2, No MRGs, no JVD Respiratory: Bilateral coarse rhonchi Abdomen: Soft, non-tender, non-distended, normal bowel sounds, no guarding or rebound. Skin: Warm, dry, normal turgor, no rash MS/Extremity: Pulses equal, no cyanosis, neurovascular intact, FROM Neuro: COAx4, GCS 15, strength 5/5, CN 2-12 intact, normal cerebellar exam, normal gait, Psych: Normal behavior, mood, and affect normal Extremities-trace edema without any palpable cords, Homans sign is negative Results (Laboratory/Radiology) Laboratory/Radiology Laboratory Tests Test 08/09/24 23:29 08/09/24 23:32 White Blood Count 3.2 K/uL (4.8-10.8) L Red Blood Count 3.98 MIL/uL (4.00-5.50) L Hemoglobin 13.0 g/dL (12.0-16.0) Hematocrit 38.5 % (36-48) Mean Corpuscular Volume 96.7 fL (79-99) Mean Corpuscular Hemoglobin 32.7 pg (27.0-33.0) Mean Corpuscular Hemoglobin Concent 33.8 g/dL (32.0-36.0) Red Cell Distribution Width 14.6 % (11.0-15.5) Platelet Count 195 K/uL (130-400) Mean Platelet Volume 10.3 fL (7.5-10.5) Immature Granulocyte % (Auto) 0.0 % (0-1) Neutrophils (%) (Auto) 56.2 % (40.0-77.0) Lymphocytes (%) (Auto) 25.5 % (21.0-51.0) Monocytes (%) (Auto) 6.3 % (3.0-13.0) Eosinophils (%) (Auto) 10.7 % (0.0-8.0) H Basophils (%) (Auto) 1.3 % (0.0-5.0) Neutrophils # (Auto) 1.8 K/uL (1.8-7.7) Lymphocytes # (Auto) 0.8 K/uL (1.0-4.8) L Monocytes # (Auto) 0.2 K/uL (0.1-1.0) Eosinophils # (Auto) 0.34 K/uL (0.00-0.70) Basophils # (Auto) 0.04 K/uL (0.00-0.20) Absolute Immature Granulocyte (auto 0.00 K/uL (0-1) Nucleated Red Blood Cells 0.0 % (0.0-0.19) Sodium Level 134 mmol/L (136-145) L Potassium Level 4.0 mmol/L (3.5-5.1) Chloride Level 100 mmol/L (101-111) L Carbon Dioxide Level 32 mmol/L (21-32) Blood Urea Nitrogen 18 mg/dL (7-18) Creatinine 0.4 mg/dL (0.5-1.0) L Glomerular Filtration Rate Calc 127 mL/min (>90) Random Glucose 151 mg/dL (70-105) H Total Calcium 8.7 mg/dL (8.5-10.1) Human Chorionic Gonadotropin, Quant 0 mIU/mL (0-5) Blood Gas Specimen Type Venous Arterial Blood Oxygen Saturation 98.7 % (94.0-98.0) H Venous Blood pH 7.429 (7.320-7.430) Venous Blood pCO2 at Patient Temp 39 (38-54) Venous Blood pO2 at Patient Temp 133.4 mmHg (23.0-48.0) H Venous Blood HCO3 25.5 (22.0-29.0) Venous Blood Base Excess 1.2 (-2.0-3.0) Blood Gas Temperature 37.0 CELSIUS (35.5-37.0) Blood Gas Vent Mode RA21 (ROOM AIR) FiO2 21.0 % Blood Gas Specimen Comment DR JU GORDON Labs Reviewed?: Yes ED Course ED Course Orders Procedure Category Date Status Time Cbc With Differential LAB 08/09/24 Complete 22:21 Basic Metabolic Panel LAB 08/09/24 Complete 22:21 Hcg,Quantitative LAB 08/09/24 Complete 22:21 Urinalysis Profile LAB 08/09/24 Logged 22:21 Chest 1vw RAD 08/09/24 Taken 22:21 Venous Blood Gas RT 08/09/24 Transmitted 23:20 Venous Blood Gas LAB 08/09/24 Complete 23:32 Prednisone 20mg Tab PHA 08/10/24 Complete (Deltasone/Orasone 2 00:00 Clindamycin 150mg Cap PHA 08/10/24 Complete (Cleocin 150mg Cap 00:00 Current Medications Medications (Trade) Dose Ordered Sig/Sam Route PRN Reason Start Time Stop Time Status Last Admin Dose Admin Clindamycin HCl (Cleocin 150mg Cap) 300 mg ONCE ONCE PO 08/10/24 00:00 08/10/24 00:01 DC 08/10/24 00:26 Prednisone (deltaSONE/ oraSONE 20MG TAB) 20 mg ONCE ONCE PO 08/10/24 00:00 08/10/24 00:01 DC 08/10/24 00:27 Vital Signs Date Time Temp Pulse Resp B/P (MAP) Pulse Ox O2 Delivery O2 Flow Rate FiO2 08/10/24 00:08 77 16 103/67 96 Room Air* 0 21 08/09/24 22:21 96.8 80 16 98/65 96 Room Air 0 We will perform diagnostic labs, advanced imaging and administer medications according to the patient's complaint. Once the results are available, will review and personally interpreted the labs to rule out any acute life- threatening emergency the trach require immediate intervention and treatment. I will then re-evaluate the patient after treatment and diagnostic exams have return to determine whether the patient requires any further testing, can safely be discharged home or need further admission to hospital for additional treatment and evaluation. Reviewed labs CBC showed a white count of 3.2 otherwise negative BNP 7 was essentially within normal limits except for a sodium of 134. Chest x-ray shows bilateral perihilar infiltrates exactly the same as 4 weeks ago. Considering the possibility of an aspiration especially with the having a PEG tube in place, and also having chest congestion, gave a trial of a low-dose of steroid and clindamycin. Patient tolerated it very well without any immediate complications Her vital signs have been excellent and pulse oximetry has been 96-97% throughout her stay in the ER. We will discharge her back to the skilled nursing with outpatient short course of prednisone and a antibiotic therapy Medical Decision Making MDM MDM: Differential diagnosis: Aspiration pneumonia, hypoventilation syndrome, poor effort Rationale: Tests considered and ordered secondary to shared decision making include: Previous outside records reviewed: Old ER visits. Risk of complication and/or morbidity or mortality of patient management: None Medications-Per medication reconciliation Need for hospitalization: Patient does not meet criteria for hospitalization. Need for emergency major/minor surgery: No There are no social concerns with this patient. Prescription drug management Prescriptions will include symptomatic care Patient's prior external medical records from other ER visits were reviewed by me as indicated. Prior testing and results from previous visits were reviewed. Prior tests were taken into account with medical decision making and resource utilization, independent historian/historians were used to obtain complete medical history. I independently interpreted the test that were performed, results were reviewed by me and considered findings on radiology if ordered. Medical management and examination interpretation discussions were had by me with other qualified healthcare professionals as indicated for the patient's care. Problem List Problem List: (1) Aspiration pneumonia (2) History of cerebral palsy (3) Protein-calorie malnutrition, severe (4) Status post insertion of percutaneous endoscopic gastrostomy (PEG) tube DX & DISP Disposition: Discharge Departure Impression: Primary Impression: Aspiration pneumonia Additional Impressions: History of cerebral palsy, Protein-calorie malnutrition, severe Condition: Stable Scripts Clindamycin HCl (Clindamycin HCl) 300 Mg Capsule 1 CAP PO BID for 7 Days, #14 CAP 0 Refills Prov: JUSTICE LAO MD 08/10/24 Prednisone (Prednisone) 20 Mg Tablet 1 TAB PO AD for 6 Days, #14 TAB 0 Refills TAKE 1 TAB BY MOUTH THREE TIMES PER DAY X3 DAYS, THEN TAKE 1 TAB BY MOUTH TWICE A DAY X2 DAYS, THEN TAKE 1 TAB BY MOUTH ONCE A DAY X1 DAY. Prov: JUSTICE LAO MD 08/10/24 Additional Instructions: Patient and the caregiver have been informed of all the diagnostic tests and the imaging conducted during the today's visit to the emergency room and has verbalized understanding of the results I have personally reviewed and interpreted all diagnostic exams performed here in the ER today as well as the vital signs documented by the nursing staff. The patient is now being discharged to home and should follow up with the primary care physician or the specialist as directed by the ER staff. Follow-up with primary care provider in 1 to 2 days. Take medications as directed here in the emergency room. Okay to continue home medications unless otherwise discussed during your visit in the emergency room today. Return to your nearest emergency room if symptoms worsen or if there is no improvement. Call 911 if you need immediate assistance. Take Tylenol or Motrin [id number] as needed and if no contraindications are present. Increase oral hydration. A wound culture or urine culture was ordered here in the emergency room department please follow-up with primary care provider and advise them to get repeat ports from our facility. If you had any Jose Maria wrap/splints that were applied here, please do not remove them until you see your primary care or specialty. Referrals: JAMIE TAYLOR MD (PCP) JUSTICE LAO MD Aug 09, 2024 22:23
[2024-08-09 23:34] LABS: ABG OXYGEN SATURATION 98.7 % (94.0-98.0); BASE EXCESS,VENOUS BLOOD GAS 1.2 (-2.0-3.0); HCO3,VENOUS BLOOD GAS 25.5 (22.0-29.0); PCO2,VENOUS BLOOD GAS 39 (38-54); PH,VENOUS BLOOD GAS 7.429 (7.320-7.430); PO2,VENOUS BLOOD GAS 133.4 mmHg (23.0-48.0); VENT MODE, BG RA21 (ROOM AIR)
[2024-08-09 23:35] LABS: BASOPHILS # (AUTO) 0.04 K/uL (0.00-0.20); BASOPHILS % (AUTO) 1.3 % (0.0-5.0); EOSINOPHILS # (AUTO) 0.34 K/uL (0.00-0.70); EOSINOPHILS % (AUTO) 10.7 % (0.0-8.0); HEMATOCRIT 38.5 % (36-48); LYMPHOCYTES # (AUTO) 0.8 K/uL (1.0-4.8); LYMPHOCYTES % (AUTO) 25.5 % (21.0-51.0); MEAN CORPUSCULAR HEMOGLOBIN 32.7 pg (27.0-33.0); MEAN CORPUSCULAR HGB CONC 33.8 g/dL (32.0-36.0); MEAN CORPUSCULAR VOLUME 96.7 fL (79-99); MONOCYTES # (AUTO) 0.2 K/uL (0.1-1.0); MONOCYTES % (AUTO) 6.3 % (3.0-13.0); NEUTROPHILS # (AUTO) 1.8 K/uL (1.8-7.7); NEUTROPHILS % (AUTO) 56.2 % (40.0-77.0); PLATELET COUNT (AUTO) 195 K/uL (130-400); RED BLOOD CELL COUNT(AUTO) 3.98 MIL/uL (4.00-5.50); RED CELL DISTRIBUTION WIDTH 14.6 % (11.0-15.5); WHITE BLOOD COUNT (AUTO) 3.2 K/uL (4.8-10.8)
[2024-08-09 23:42] LABS: CREATININE 0.4 mg/dL (0.5-1.0)
[2024-08-10] MEDS ORDERED: PRED20TA3 PO (00:02)
[2024-08-10] MEDS ORDERED: CLIN-141 PO (00:02)
--- NOTE | 2024-08-10 00:05 | NUR ---
PROVIDER AT BEDSIDE
[2024-08-10] MEDS: CLINDAMYCIN 150 MG CAP PO ONE (00:26)
--- NOTE | 2024-08-10 00:26 | NUR ---
PEG TUBE ASSESSED FOR PATENCY PRIOR TO MEDICATING, 10 ML ENTEREAL NUTRITION EASILY ASPIRATED, FLUSHED WITH 30 ML WATER AFTER MEDICATING.
[2024-08-10] MEDS: predniSONE 20 MG TABLET PO ONE (00:27)
--- NOTE | 2024-08-10 01:07 | NUR ---
ATTEMPTED TO NOTIFY SKILLED NURSING OF PATIENTS DISCHARGE AND PENDING ARRIVAL BY EMS, NO ANSWER AT NUMBER PROVIDED ON PATIENT INFORMATION SHEET FROM [email or web address]
[2024-08-10 01:59] VITALS: BP 98/56; PULSE 70; RESP 16; TEMP 97; O2SAT 97
--- NOTE | 2024-08-10 08:23 | HMCIMG ---
PORTABLE CHEST RADIOGRAPH INDICATION: cough and hypoxia COMPARISON: 06/27/2024 FINDINGS: Patient positioning is not optimal, but the radiologic examination is still believed to be of reasonable diagnostic quality. Heart size is normal. The pulmonary vascularity and mira appear normal. Minimal linear left lung base opacities without consolidation. No significant pleural effusion noted. No pneumothorax detected. Mild thoracic dextroscoliosis. IMPRESSION: Minimal left lung base atelectasis.
== END 2024-08-10 02:01 | disposition home or self-care (01) ==
LOC: EDH 22:21
DX: J69.0 Pneumonitis due to inhalation of food and vomit (principal); E43 Unspecified severe protein-calorie malnutrition; G80.9 Cerebral palsy, unspecified; R10.2 Pelvic and perineal pain; E03.9 Hypothyroidism, unspecified; Z68.21 Body mass index [BMI] 21.0-21.9, adult; Z79.899 Other long term (current) drug therapy
CPT/HCPCS: 36415; 36600; 71045; 80048; 82803; 84702; 85025; 99284